=== PATIENT | female | born 1970 | race Caucasian/White ===

== ENCOUNTER 2019-11-25 14:46 | Emergency (ER) | payer OTHER, SELFPAY ==
--- NOTE | ~2019-11-25 | CT_ITS ---
EXAMINATION: CTA chest PE protocol DATE: 11/25/2019 16:17 INDICATION: Shortness of breath, COVID 19 diagnosed on 11/12/2019 TECHNIQUE: Computed tomography angiography (CTA) of the chest was performed with 100 mL Omnipaque-350 intravenous contrast timed to evaluate the pulmonary arteries. Coronal maximum intensity projection 3D-reconstructions were created by the technologist. The dose-length product (DLP) was 379.00 mGy-cm. Automated exposure control and iterative reconstruction technique were employed. COMPARISON: None. FINDINGS: The pulmonary arteries are well-opacified. No pulmonary embolism is identified. There are patchy groundglass opacities throughout the lungs. Trace pleural effusions are present. There is no p neumothorax. The heart size is normal. There is mild bilateral hilar and mediastinal lymphadenopathy. IMPRESSION: 1. No pulmonary embolism. 2. Patchy groundglass opacities throughout all lung zones, compatible with patient's history of COVID 19 pneumonia. Reviewed, dictated and finalized at location A. IMPRESSION: 1. No pulmonary embolism. 2. Patchy groundglass opacities throughout all lung zones, compatible with courtney ent's history of COVID 19 pneumonia.
[2019-11-25 14:49] VITALS: BP 111/77; PULSE 71; RESP 20; TEMP 36.7; O2SAT 97
[2019-11-25 15:30] LABS: Basophils Percent Auto 0.3 % (0.2-1.2); Eosinophils Absolute Auto 0.1 K/mm3 (0-0.3); Eosinophils Percent Auto 0.9 % (0-4.4); Hematocrit 40.5 % (37.0-47.0); Hemoglobin 14.2 g/dL (12.0-15.0); Immature Granulocyte Absolute 0.06 K/mm3 (0.00-0.031); Immature Granulocyte Percent A 0.4 % (0-0.5); Lymphocytes Absolute Auto 2.11 K/mm3 (0.9-3.2); Lymphocytes Percent Auto 15.4 % (18.3-44.2); Mean Corpuscular HGB Conc 35.1 g/dl (32-36); Mean Corpuscular Hemoglobin 30.1 pg (26-34); Mean Platelet Volume 9.6 fl (7.4-10.4); Monocytes Absolute Auto 0.7 K/mm3 (0.1-0.6); Monocytes Percent Auto 5.1 % (2.6-8.5); Neutrophils Absolute Auto 10.7 K/mm3 (1.3-6.7); Neutrophils Percent Auto 77.9 % (45.5-73.1); Platelet Count Result 392 k/mm3 (150-375); Red Blood Count 4.71 M/mm3 (4.2-5.4); Red Cell Distribution Width 11.1 % (11.5-14.5); White Blood Count 13.7 K/mm3 (4.5-10.0)
--- NOTE | 2019-11-25 15:39 | ED.SOB ---
HPI - SOB/Dyspnea General Chief Complaint: Shortness of Breath/Dyspnea <Enrique Espitia PA-C - Last Filed: 11/25/19 21:48> Stated Complaint: SOB <NOEL Nicole Last Filed: 11/25/19 21:48> Time Seen by Provider: 11/25/19 14:54 <NOEL Nicole Last Filed: 11/25/19 21:48> Source: patient <NOEL Nicole Last Filed: 11/25/19 21:48> Mode of arrival: ambulatory <NOEL Nicole Last Filed: 11/25/19 21:48> Limitations: no limitations <NOEL Nicole Last Filed: 11/25/19 21:48> History of Present Illness HPI Narrative: Patient presents with chief complaint of shortness of breath and feelings of chest tightness that has been occurring intermittently since her diagnosis of COVID on 11-12-19. Patient states that she officially tested positive on 11-13-19. Patient states that the health department clear her for return to work on Friday however she was still having fevers so her first day back to work was today. Patient states that she initially began feeling short of breath while walking into the building but lasted approximately 3 hours so she went back to the urgent care where she tested positive and was sent to the emergency department via EMS. Patient states she has been fever free for 24 hours. Patient denies nausea, vomiting, diarrhea. Patient reports she has a history of bipolar disorder, anxiety and IBS <NOEL Nicole Last Filed: 11/25/19 21:48> Related Data Home Medications: Home Medications Medication Instructions Recorded Confirmed alprazolam 1 mg PO TID 11/25/19 amoxicillin-pot clavulanate 1 tablet PO TID 11/25/19 cefdinir 300 mg PO BID 11/25/19 sertraline 200 mg PO DAILY 11/25/19 <NOEL Nicole Last Filed: 11/25/19 21:48> Allergies/Adverse Reactions: Allergies Allergy/AdvReac Type Severity Reaction Status Date / Time codeine Allergy Intermediate HYPERACTIVE Unverified 06/01/08 12:27 <Enrique Espitia PA-C - Last Filed: 11/25/19 21:48> Review of Systems Review of Systems: Narrative: CONSTITUTIONAL: Denies fever, chills, or sweats. EYES: Denies visual changes, redness, or discharge. ENT: Denies rhinorrhea, congestion, sore throat, or otalgia. CARDIOVASCULAR: Denies chest pain, palpitations, or edema. RESPIRATORY: Reports dyspnea denies cough GASTROINTESTINAL: Denies abdominal pain, nausea, vomiting, or diarrhea. GENITOURINARY: Denies dysuria or hematuria. SKIN: Denies rash or itching. MUSCULOSKELETAL: Denies back pain, myalgia, or joint pain NEUROLOGIC: Denies headache, numbness, dizziness, or weakness. PSYCHIATRIC: Denies anxiety or depression. <Enrique Espitia PA-C - Last Filed: 11/25/19 21:48> Exam Narrative: Exam Narrative: GENERAL: Well-appearing, well-nourished. HEAD: Normocephalic, atraumatic. EYES: PERRLA and EOMI. ENT: Nares clear, no rhinorrhea or epistaxis. Mucous membranes moist. Oropharynx without tonsillar hypertrophy exudate or other lesions. Bilateral TMs pearly decker nonbulging NECK: Supple. No adenopathy or masses. No vertebral tenderness or loss of ROM. CHEST: Clear to auscultation. No respiratory distress. No wheezes rales or rhonchi. Patient is not tachypneic. HEART: Regular rate and rhythm. Normal peripheral pulses. EXTREMITIES: No acute changes in ROM. No edema. No pain with palpation of lower legs. SKIN: Warm, dry, no rash. NEURO: No focal deficits. Alert and oriented x3. PSYCH: Normal mood and affect. <Enrique Espitia PA-C - Last Filed: 11/25/19 21:48> Course Vital Signs Vital signs: Vital Signs Temperature 98.0 F 11/25/19 14:49 Pulse Rate 71 11/25/19 14:49 Respiratory Rate 20 11/25/19 14:49 Blood Pressure 111/77 11/25/19 14:49 Pulse Oximetry 97 11/25/19 14:49 Temperature 98.0 F 11/25/19 14:49 Pulse Rate 78 11/25/19 17:12 Respiratory Rate 18 11/25/19 17:12 Blood Pressure 132/68 11/25/19 17:12 Pulse Oximetry 99
[2019-11-25 15:42] LABS: Prothrombin Time 13.1 Seconds (11.1-14.7)
--- NOTE | 2019-11-25 15:42 | ECG_ITS ---
Measurements Intervals [place] Rate: 76 P: 22 MO: 156 QRS: -19 QRSD: 92 T: 12 QT: 380 QTc: 429 Interpretive Statements SINUS RHYTHM DELAYED PRECORDIAL R/S TRANSITION BORDERLINE T WAVE ABNORMALITY- ANTERIOR LEADS BASELINE ARTIFACT- I, II, AVR BORDERLINE ECG Electronically Signed On 11-26-2019 14:21:55 CDT by Surya Catherine D.O.
[2019-11-25 15:43] LABS: Partial Thromboplastin Time 25.2 SECONDS (22.3-36.8)
[2019-11-25 15:44] LABS: Alanine Aminotransferase 36 U/L (4-35); Albumin Level 3.9 g/dL (3.5-5.1); Alkaline Phosphatase 84 U/L (38-126); Anion Gap 13 mmol/L (8-16); Aspartate Amino Transferase 31 U/L (14-36); Bilirubin,Total 0.2 mg/dL (0.2-1.3); Blood Urea Nitrogen 14 mg/dL (7-17); Calcium 8.9 mg/dL (8.4-10.2); Carbon Dioxide 18 mmol/L (22-30); Chloride 100 mmol/L (98-107); Estimated CRCL calculation 122 ml/min; Estimated Glomerular Filt Rate > 60; Glucose 94 mg/dL (65-105); Potassium 4.4 mmol/L (3.4-5.0); Sodium 131 mmol/L (137-145)
[2019-11-25 15:45] LABS: D Dimer 0.97 ug/mL (<0.48)
[2019-11-25] MEDS: ALBUTEROL SULFATE (*SP) AEROSOL 1 PUFF 2 PUFF INHALATION (16:10)
[2019-11-25 16:59] LABS: Add Urine Microscopic? YES; Appearance Urine Clear (Clear); Bilirubin Urine Negative (Negative); Blood Urine Negative (Negative); Color Urine Straw (Yellow); Glucose Urine UA Negative (Negative); Ketones Urine Negative (Negative); Leukocyte Esterase Ur Negative LEU/UL (Negative); Nitrate Urine Negative (Negative); Protein Urine Negative (Negative); RBC Urine 0-2 /hpf (0-2); Urobilinogen Urine Negative mg/dL (<2.0); WBC Urine 0-3 /hpf
[2019-11-25 17:01] LABS: Specific Grav Ur 1.039 (1.001-1.035)
[2019-11-25 17:12] VITALS: BP 132/68; PULSE 78; RESP 18; O2SAT 99
== END 2019-11-25 17:15 | disposition home or self-care (01) ==
PROVIDERS: Physician Assistant; Emergency Provider General Practice
DX: U07.1 COVID-19 (principal); J12.89 Other viral pneumonia; R94.31 Abnormal electrocardiogram [ECG] [EKG]
CPT/HCPCS: 36415; 71275; 80053; 81001; 85025; 85380; 85610; 85730; 93005; 99284; A9270; Q9967

== ENCOUNTER 2022-08-26 01:06 | Day surgery (SDC) | payer OTHER, SELFPAY ==
--- NOTE | 2022-08-21 13:32 | PC.NURSE ---
Report to the Outpatient Waiting Room, entrance under the green pavilion located off [facility], at time 0615_ on date _08/26/22 . Planned Procedure Time: _0815__. Time changes happen often and if your time is changed the preop area will call you the afternoon before. - You and your visitor will be asked to self-screen and do not enter if you have any COVID symptoms. - A mask is optional within the hospital at this time. Patients may have clear liquids (water, carbonated beverages, clear teas, apple juice) until 3 hours prior to surgery with a maximum of 20 ounces. - No food from midnight until time of surgery Take only the following medications with a SIP of water the morning of surgery: __ALPRAZOLAM, SERTRALINE, SAPHRIS, BREO INHALER AND ALBUTEROL INHALER NEEDED DO NOT STOP ANY OF YOUR OTHER PRESCRIPTION MEDICATIONS PRIOR TO SURGERY ?EXCEPT THE FOLLOWING Medications to discontinue per physician N/A Date to take last dose N/A Please no make-up, nail faroese, hairspray, perfume, deodorant, or body powder the day of surgery. No jewelry (including any body piercings) or valuables the day of surgery, leave them at home. Please take a shower or bath the night before, or the morning of, surgery with an antibacterial soap. Wear comfortable, loose fitting clothing. - Jewelry must be removed prior to entering the operating room. Rings and piercings that are not removed may be cut off. - The hospital will not accept responsibility for valuables. - Please leave all valuables, including medications, at home the day of surgery. If you are going home after surgery, a licensed spike driver must drive you home. - NO public transportation without another adult if you receive anesthesia. - We recommend that an adult stay with you for 24 hours following discharge. - We also recommend that you do not drive, make important decision, drink alcoholic beverages, or take any drugs that were not prescribed by your health care provider for at least 24 hours after your discharge time. Follow any additional instructions given to you from your surgeon. If you or anyone in your household have experienced Covid symptoms in the past week, please notify your surgeon or the nurse liaison at the phone number below for possible testing. Telephone instructions given to __TRICIA and asked if any additional questions and then verbalized understanding. Patient advised to call surgeon office or pre surgery nurse liaison [phone] if any additional questions.
[2022-08-26 08:20] VITALS: BP 113/72; PULSE 77; RESP 18; TEMP 35.9; O2SAT 100
[2022-08-26] MEDS: ACETAMINOPHEN 500 MG TABLET 1000 MG PO (08:41)
[2022-08-26] MEDS: LACTATED RINGERS 1,000 ML 30 ML IV CONT (08:42)
--- NOTE | 2022-08-26 09:33 | P.PNAN_ITS ---
Anes - Initial Pre Proc Eval Procedure: Operation Date: 08/26/22 10:15 Proposed Procedures p Hysteroscopy Dilation and Curettage - Tamika Ibanez MD Date/Time: 08/26/22 09:33 Surgeon: Tamika Ibanez MD Pre Op Diagnosis: post menopausal bleeding Patient Data Age: 52 Gender: F Height: 1.73 m Weight: 118.2 kg Last Vital Signs Temp 35.9 C L 08/26/22 08:20 Pulse 77 08/26/22 08:20 Resp 18 08/26/22 08:20 BP 113/72 08/26/22 08:20 Pulse Ox 100 08/26/22 08:20 O2 Del Method Room Air 08/26/22 08:20 Allergies Allergy/AdvReac Type Severity Reaction Status Date / Time codeine AdvReac Intermediate N/V Unverified 08/26/22 08:28 Home Medications Medication Instructions Recorded Confirmed Type alprazolam 1 mg tablet 1 mg PO TID 11/25/19 08/26/22 History sertraline 100 mg tablet 200 mg PO DAILY 11/25/19 08/26/22 History albuterol sulfate 90 mcg/actuation 2 inh inhalation PRN PRN SOB 08/21/22 08/26/22 History breath activated powder inhaler asenapine maleate 5 mg sublingual 5 mg sublingual BID 08/21/22 08/26/22 History tablet (Saphris) azathioprine 50 mg tablet 150 mg PO HS 08/21/22 08/26/22 History fluticasone furoate 100 1 ea inhalation DAILY 08/21/22 08/26/22 History mcg-vilanterol 25 mcg/dose inhalation powder (Breo Ellipta) pantoprazole 40 mg tablet,delayed 40 mg PO HS 08/21/22 08/26/22 History release Patient hx anesthesia problems: none Family hx anesthesia problems: none Results Review: All pre-operative results and documents have been reviewed as part of the pre- operative evaluation. [facility] Past Medical History Medical History (Updated 08/26/22 @ 09:33 by Yoel Carlson MD) Asthma Obesity Social History Social History Smoking status: Never smoker Alcohol intake: never Substance use: never Substance use type: does not use Living arrangements: with family Spiritual care concerns: No Anes - Eval Final PreProcedure Day of Procedure 08/26/22 09:33 Patient weight: obese Heart: regular rate and rhythm Lungs: clear to auscultation Airway: Mallampati scale class II Neurological: alert and oriented Last oral intake: >/= 8 hours ASA classification: III Emergent: no Anesthetic plan: proceed Anesthesia type and monitoring: general GIVS and standard monitoring Results Review: All pre-operative results and documents have been reviewed as part of the pre- operative evaluation. Informed Consent: The patient's anesthetic plan and its attendant risks and benefits were discussed with the patient/family/POA. Questions were solicited and answers provided to the satisfaction of the patient/family/POA.
--- NOTE | 2022-08-26 10:26 | WPDHPUPDATE1 ---
History and Physical Update Update Date/Time: 08/26/22 10:26 History and Physical has been reviewed, including an updated exam of the patient. There are NO changes in the patient's condition. Risks, benefits, and alternatives have been discussed and questions answered. Patient agrees to proceed with procedure.
--- NOTE | 2022-08-26 10:26 | PM.HPGS ---
History of Present Illness History of Present Illness Consent: Risks, benefits, and alternatives have been discussed and questions answered. Patient agrees to proceed with procedure. Chief complaint: post menopausal bleeding Narrative: Rody Velazquez is a 52 year old female with postmenopausal bleeding. She underwent ultrasound which resulted in a thickened endometrium of 0.7cm. It was recommended to proceed with D&C hysteroscopy for further evaluation. Risks infection, bleeding, perforation and possible pathology are reviewed. Patient voices understanding and agrees to proceed Review of Systems Review of Systems: not repeated day of surgery; patient states no changes in status [facility] Past Medical History Medical History (Updated 08/26/22 @ 10:32 by Tamika Ibanez MD) Anxiety Asthma Bipolar 1 disorder Borderline diabetic Elevated cholesterol IBS (irritable bowel syndrome) Migraines Narcolepsy (normal spontaneous vaginal delivery) x2 Obesity Psoriasis Rheumatoid arthritis Surgical History Surgical History (Updated 08/26/22 @ 10:30 by Tamika Ibanez MD) History of hand surgery removal of cyst from the left hand History of hysteroscopy with placement of Essure sterilization device Social History Social History Smoking status: Never smoker Alcohol intake: never Substance use: never Substance use type: does not use Living arrangements: with family Spiritual care concerns: No Meds Home Medications and Allergies Home Medications Medication Instructions Recorded Confirmed Type alprazolam 1 mg tablet 1 mg PO TID 11/25/19 08/26/22 History sertraline 100 mg tablet 200 mg PO DAILY 11/25/19 08/26/22 History albuterol sulfate 90 mcg/actuation 2 inh inhalation PRN PRN SOB 08/21/22 08/26/22 History breath activated powder inhaler asenapine maleate 5 mg sublingual 5 mg sublingual BID 08/21/22 08/26/22 History tablet (Saphris) azathioprine 50 mg tablet 150 mg PO HS 08/21/22 08/26/22 History fluticasone furoate 100 1 ea inhalation DAILY 08/21/22 08/26/22 History mcg-vilanterol 25 mcg/dose inhalation powder (Breo Ellipta) pantoprazole 40 mg tablet,delayed 40 mg PO HS 08/21/22 08/26/22 History release Allergies Allergy/AdvReac Type Severity Reaction Status Date / Time codeine AdvReac Intermediate N/V Unverified 08/26/22 08:28 Vital Signs Vital Signs - 24 hr 08/26/22 08:20 Temperature 96.7 F L Pulse Rate 77 Respiratory Rate 18 Blood Pressure 113/72 Pulse Oximetry 100 Oxygen Delivery Room Air Exam Const: General: healthy appearing, alert and obese ( BMI 40.8) Orientation/consciousness: patient oriented x3 Resp: Effort & Inspection: normal respiratory effort GI: GI Palp: Yes Soft to palpation, No Tenderness to palpation present (GI) and No Palpable mass present : External Female Exam: normal external appearance Speculum Exam - Vagina: normal appearance of the vagina and normal vaginal discharge Speculum Exam - Cervix: normal appearance of the cervix Bimanual exam- vagina & uterus: uterine size normal and consistency normal Bimanual Exam- Adnexa, other: normal adnexae and No adnexal tenderness Neuro: General: patient oriented x3 Assessment and Plan Assessment and plan (1) Post-menopausal bleeding: Code(s): N95.0 - Postmenopausal bleeding Status: Acute Assessment and Plan: plan to proceed with D&C hysteroscopy
[2022-08-26 11:05] VITALS: BP 118/56; PULSE 64; RESP 16; O2SAT 93
--- NOTE | 2022-08-26 11:14 | P.OP_ITS ---
Procedure Note - Detailed Date of Procedure 08/26/22 Pre-op Diagnosis post menopausal bleeding Post-op Diagnosis Same Procedure Performed D&C hysteroscopy Surgeon Tamika Ibanez MD Anesthesia MAC Findings Atrophic endometrium sounded to 8cm Description of Procedure The patient is taken to the operating room and placed under anesthesia in the dorsal lithotomy position. She was prepped and draped in usual sterile fashion. [place] speculum was placed in the vagina and the cervix grasped on the anterior lip with a tenaculum. The uterus is sounded to 8cm and the diagnostic hysteroscope placed. The endometrium appears atrophic. The hysteroscope was removed and the sharp curette used to curette the endometrium until a good uterine cry was noted in all areas. Minimal material was obtained consistent with the visual appearance. All instruments are removed. Sponge, needle, and instrument counts are correct per the OR staff. Patient is awakened from anesthesia and taken to recovery in stable condition. Estimated Blood Loss 5 Drains No Packing No Pathology Yes ( endometrial curettings) Complications No immediate complications Condition Stable Disposition PACU
[2022-08-26 11:35] VITALS: BP 115/67; PULSE 59; RESP 16; O2SAT 98
[2022-08-26 12:05] VITALS: BP 137/86; PULSE 68; RESP 16; O2SAT 98
[2022-08-26 12:25] VITALS: BP 120/69; PULSE 60; RESP 16; O2SAT 98
== END 2022-08-26 12:40 | disposition home or self-care (01) ==
PROVIDERS: PCP Internal Medicine; Visit Provider Obstetrics & Gynecology Gynecology
PROC: 0U5B8ZZ Destruction of Endometrium, Via Natural or Artificial Opening Endoscopic (ICD-10-PCS; CPT 58563; principal; 2022-08-26 10:15)
DX: N95.0 Postmenopausal bleeding (principal); J45.909 Unspecified asthma, uncomplicated; E66.9 Obesity, unspecified; Z68.39 Body mass index [BMI] 39.0-39.9, adult; Z79.51 Long term (current) use of inhaled steroids; F31.9 Bipolar disorder, unspecified
CPT/HCPCS: 58558; 88305; A9270; J2250; J2704; J3010; J7120

== ENCOUNTER → 2022-12-11 12:12 | Outpatient (CLI) | payer OTHER, SELFPAY ==
--- NOTE | ~2022-12-11 | MM_ITS ---
EXAMINATION: MM screening kayce BI w chacho HISTORY: Screening mammogram TECHNIQUE: Craniocaudal and mediolateral oblique 3-D tomosynthesis images were obtained and synthetic 2-D images were generated. CAD analysis was submitted and interpreted. COMPARISON: No prior mammogram is available for comparison at this institution. BREAST PARENCHYMAL COMPOSITION: The breasts are heterogeneously dense, which may obscure small masses . FINDINGS: There is no evidence of suspicious mass, calcification, or architectural distortion to sugg est malignancy in either breast. There has been no suspicious interval change. IMPRESSION: 1. No mammographic evidence of malignancy. 2. Recommend routine screening mammography in one year. BI-RADS Category 1: Negative Reviewed, dictated and finalized at location A.
--- NOTE | ~2022-12-11 | DEXA_ITS ---
Bone Density Report Name: KATHRYN MORALES Age: 52 Sex: Female Ethnicity: White Date of : 1970 Indication: postmenopausal; screening for osteoporosis; height loss; history of glucocorticoids; prior fracture; asthma or emphysema; rheumatoid arthritis; Referring Provider: CEFERINO ROD Study: Bone densitometry was performed. Exam Date: December 11, 2022 Accession number: [id number] Bone Density: Region BMD T-score Z-score Classification AP Spine (L1-L4) 1.080 0.3 1.1 Normal Femoral Neck (Left) 0.848 0.0 0.8 Normal Total Hip (Left) 1.018 0.6 1.2 Normal Femoral Neck (Right) 0.847 0.0 0.8 Normal Total Hip (Right) 0.939 0.0 0.5 Normal Total Hip Mean 0.979 0.3 0.9 Normal World Health Organization criteria for BMD impression classify patients as: Normal (T-score at or above -1.0), Osteopenia (T-score between -1.0 and -2.5), or Osteoporosis (T-score at or below -2.5). 10-year Fracture Risk: FRAX not reported because: All T-scores for Spine Total, Hip Total, Femoral Neck at or above -1.0 Prior hip or vertebral fracture Clinical Information Provided by Patient: Have had a previous hip or vertebral fracture Has had a low trauma fracture Has taken Glucocorticoids Has rheumatoid arthritis Has the following medical conditions: Asthma or Emphysema, IBS, no meds Patient maximum height was 69 No regular weight bearing exercise Drinks caffeinated beverages Onset of menses at age 14 Number of children 2 Impression: The patient has normal bone mass. The patient has risk factors, including: previous fracture, history of glucocorticoid therapy. Discussion: INCREASED RISK OF FRACTURE DUE TO HISTORY OF FRACTURE. The patient's previous fracture puts the patient at high risk of a future fracture. In untreated patients, the risk of osteoporotic fracture increases approximately two-fold for each 1.0 SD decrease in T-score. Low bone density is not the only risk factor for fracture; also consider factors such as patient's age, frailty or poor health, risk of falling, risk of injury, previous osteoporotic fracture, family history of osteoporosis, cigarette smoking, low body weight, etc. Not everyone with a low trauma fracture has osteoporosis; osteomalacia and other metabolic bone disorders should also be considered. Patients who have osteoporosis should be evaluated for specific diseases and conditions (secondary causes) that may cause or contribute to bone loss and fracture risk. National Osteoporosis Foundation (NOF) recommends pharmacologic intervention for patients with a prior hip or vertebral fracture regardless of BMD T-score. The patient should follow a healthful lifestyle (good nutrition with adequate calcium and vitamin D, and appropriate weight-bearing exercise). Follow-Up: Consider a repeat BMD
== END ==
PROVIDERS: PCP Obstetrics & Gynecology Gynecology; Visit Provider Obstetrics & Gynecology Gynecology
DX: Z12.31 Encounter for screening mammogram for malignant neoplasm of breast (principal); Z13.820 Encounter for screening for osteoporosis; Z78.0 Asymptomatic menopausal state
CPT/HCPCS: 77063; 77067; 77080

== ENCOUNTER 2023-02-22 22:42 | Emergency (ER) | payer OTHER, SELFPAY ==
--- NOTE | ~2023-02-22 | CT_ITS ---
EXAMINATION: CTA chest PE protocol DATE: 02/23/2023 00:02 INDICATION: Pleuritic chest pain TECHNIQUE: Computed tomography angiography (CTA) of the chest was performed with 100 mL Omnipaque-350 intravenous contrast timed to evaluate the pulmonary arteries. Coronal maximum intensity projection 3D-reconstructions were created by the technologist. The dose-length product (DLP) was 758.15 mGy-cm. Automated exposure control and iterative reconstruction technique were employed. COMPARISON: 11/25/2019 FINDINGS: The pulmonary arteries are moderately well-opacified. No pulmonary embolism is identified. There is mild dependent atelectasis of the lungs. No pleural effusion or pneumothorax. There is enlar gement of the main and central pulmonary arteries, consistent with pulmonary hypertension. There is l eft ventricular enlargement of the heart. There are no pathologically enlarged thoracic lymph nodes. There is mild thoracic spondylosis. IMPRESSION: 1. No pulmonary embolus identified. 2. Mild dependent atelectasis. Reviewed, dictated and finalized at location F. [employer]
--- NOTE | ~2023-02-22 | XR_ITS ---
XR chest 2V DATE: 02/22/2023 23:14 INDICATION: Pleuritic chest pain. Recent Covid infection. TECHNIQUE: AP and lateral views COMPARISON: 11/25/2019 CT pulmonary scan FINDINGS: Cardiomegaly. No hilar or mediastinal enlargement. No pulmonary consolidation, pleural effusion, pulmonary vascular congestion or pneumothorax is eviden t. Included skeletal structures are unremarkable. IMPRESSION: Cardiomegaly Reviewed, dictated and finalized at location A. [employer] IMPRESSION: Cardiomegaly
[2023-02-22 22:43] VITALS: BP 133/76; PULSE 62; RESP 26; TEMP 36.4; O2SAT 99
--- NOTE | 2023-02-22 22:45 | ECG_ITS ---
Measurements Intervals [place] Rate: 64 P: 49 FL: 191 QRS: -21 QRSD: 100 T: 8 QT: 417 QTc: 431 Interpretive Statements SINUS RHYTHM DELAYED PRECORDIAL R/S TRANSITION POSSIBLE LEFT VENTRICULAR HYPERTROPHY MINIMAL Q WAVES- HIGH LATERAL LEADS BORDERLINE T WAVE ABNORMALITY- ANT/INF LEADS BASELINE ARTIFACT- I, II, AVR, AVL BORDERLINE ECG COMPARED TO ECG 11/25/2019 14:52:05 NO SIGNIFICANT CHANGES Electronically Signed On 02-23-2023 9:22:37 COFFEE SUPERVISOR by Surya Catherine D.O.
[2023-02-22 22:59] VITALS: O2SAT 98
[2023-02-22 23:00] VITALS: O2SAT 98
[2023-02-22 23:06] LABS: Basophils Percent Auto 0.3 % (0.2-1.2); Eosinophils Absolute Auto 0.2 K/mm3 (0-0.3); Eosinophils Percent Auto 1.5 % (0-4.4); Hematocrit 34.4 % (37.0-47.0); Immature Granulocyte Absolute 0.04 K/mm3 (0.00-0.031); Immature Granulocyte Percent A 0.4 % (0-0.5); Lymphocytes Absolute Auto 2.77 K/mm3 (0.9-3.2); Lymphocytes Percent Auto 25.7 % (18.3-44.2); Mean Corpuscular Hemoglobin 29.8 pg (26-34); Mean Corpuscular Volume 93.2 fl (80-100); Mean Platelet Volume 8.7 fl (7.4-10.4); Monocytes Absolute Auto 0.6 K/mm3 (0.1-0.6); Monocytes Percent Auto 5.8 % (2.6-8.5); Neutrophils Absolute Auto 7.2 K/mm3 (1.3-6.7); Neutrophils Percent Auto 66.3 % (45.5-73.1); Platelet Count Result 406 k/mm3 (150-375); Red Blood Count 3.69 M/mm3 (4.2-5.4); White Blood Count 10.8 K/mm3 (4.5-10.0)
[2023-02-22 23:43] VITALS: BP 146/72; PULSE 60; RESP 19; O2SAT 100
[2023-02-22 23:44] LABS: Alanine Aminotransferase 38 U/L (6-35); Albumin Level 4.7 g/dL (3.5-5.1); Alkaline Phosphatase 83 U/L (38-126); Anion Gap 8 mmol/L (8-16); Aspartate Amino Transferase 39 U/L (14-36); Bilirubin,Total 0.5 mg/dL (0.2-1.3); Blood Urea Nitrogen 17 mg/dL (7-17); Calcium 9.7 mg/dL (8.4-10.2); Carbon Dioxide 28 mmol/L (22-30); Chloride 101 mmol/L (98-107); Estimated CRCL calculation 131 ml/min; Estimated Glomerular Filt Rate > 60; Glucose 99 mg/dL (65-110); Potassium 3.8 mmol/L (3.4-5.0); Sodium 137 mmol/L (137-145)
[2023-02-22 23:46] VITALS: BP 132/89; PULSE 63; PULSE 68; RESP 16; RESP 18; O2SAT 100
[2023-02-22] MEDS: ALBUTEROL SULFATE NEB 2.5 MG/3 ML INH INHALATION (23:46)
[2023-02-22] MEDS: IPRATROPIUM BR 0.02% INH SOLN 0.5 MG/2.5 ML VIAL INHALATION (23:46)
[2023-02-22 23:53] VITALS: PULSE 72; RESP 18
[2023-02-23 00:01] LABS: Lactic Acid Reflex 0.9 mmol/L (0.7-2.0)
[2023-02-23 00:03] LABS: Prothrombin Time 13.6 Seconds (11.1-14.7)
[2023-02-23 00:04] LABS: Partial Thromboplastin Time 26.2 SECONDS (22.3-36.8)
[2023-02-23 00:11] LABS: NT Pro B Type Natriuretic Pept < 20 pg/mL (19.9-100); Troponin I < 0.012 ng/mL (0.000-0.034)
[2023-02-23 00:15] VITALS: PULSE 68; RESP 14; O2SAT 95
[2023-02-23] MEDS: MORPHINE SULFATE (*CRX) 4 MG/ML INJ IV PUSH (00:22)
[2023-02-23] MEDS: methylPREDNISolone SOD SUCC 125 MG VIAL IV PUSH (00:22)
[2023-02-23 00:26] LABS: Influenza A QL RT-PCR Negative (Negative); Influenza B QL RT-PCR Negative (Negative); RSV RNA, RT-PCR Negative (Negative); SARS-CoV-2 RNA PCR Negative (Negative)
--- NOTE | 2023-02-23 01:34 | ED.GENADULT ---
HPI - General Adult General Chief complaint: Shortness of Breath/Dyspnea Stated complaint: breathing problems Time Seen by Provider: 02/22/23 22:54 History of Present Illness HPI narrative: Patient is a 52-year-old female who presents emergency department chief complaint of chest discomfort and shortness of breath. Patient reports that she recently had COVID-19 reports that she has history of asthma and reports that she has been having some tightness in her chest and has also had some wheezing. The patient reports she has her inhaler patient reports she is currently on antibiotics for UTI taking Augmentin and Flagyl Related Data Home Medications Medication Instructions Recorded Confirmed alprazolam 1 mg tablet 1 mg PO TID 11/25/19 08/26/22 sertraline 100 mg tablet 200 mg PO DAILY 11/25/19 08/26/22 albuterol sulfate 90 mcg/actuation 2 inh inhalation PRN PRN SOB 08/21/22 08/26/22 breath activated powder inhaler asenapine maleate 5 mg sublingual 5 mg sublingual BID 08/21/22 08/26/22 tablet (Saphris) azathioprine 50 mg tablet 150 mg PO HS 08/21/22 08/26/22 fluticasone furoate 100 1 ea inhalation DAILY 08/21/22 08/26/22 mcg-vilanterol 25 mcg/dose inhalation powder (Breo Ellipta) pantoprazole 40 mg tablet,delayed 40 mg PO HS 08/21/22 08/26/22 release Allergies Allergy/AdvReac Type Severity Reaction Status Date / Time codeine AdvReac Intermediate N/V Verified 02/22/23 23:25 Review of Systems Review of Systems: A 10 system review of systems was completed on the patient and is negative except for what is stated in the HPI. Nursing and ancillary documentation was reviewed. [facility] Past Medical History Medical History Anxiety Asthma Bipolar 1 disorder Borderline diabetic Elevated cholesterol IBS (irritable bowel syndrome) Migraines Narcolepsy (normal spontaneous vaginal delivery) x2 Obesity Psoriasis Rheumatoid arthritis Surgical History Surgical History History of hand surgery removal of cyst from the left hand History of hysteroscopy with placement of Essure sterilization device Social History Social History Smoking status: Never smoker Alcohol intake: never Substance use: never Substance use type: does not use Living arrangements: with family Spiritual care concerns: No Exam Narrative: GENERAL: Well-appearing, well-nourished, and in no acute distress. HEAD: Normocephalic, atraumatic. EYES: PERRLA and EOMI. ENT: Nares clear, no rhinorrhea or epistaxis. Mucous membranes moist. NECK: Supple. CHEST: Clear to auscultation. No respiratory distress. HEART: Regular rate and rhythm. No murmur heard. Normal peripheral pulses. ABDOMEN: Soft, nontender, nondistended, normal active bowel sounds. EXTREMITIES: Normal range of motion. No edema. SKIN: Warm, dry, no rash. NEURO: No focal deficits. Alert and oriented x3. PSYCH: Normal mood and affect. Course Vital Signs Vital signs: Vital Signs Temperature 36.4 C L 02/22/23 22:43 Pulse Rate 62 02/22/23 22:43 Respiratory Rate 26 H 02/22/23 22:43 Blood Pressure 133/76 02/22/23 22:43 Pulse Oximetry 99 02/22/23 22:43 Oxygen Delivery Room Air 02/22/23 22:43 Temperature 36.4 C L 02/22/23 22:43 Pulse Rate 68 02/23/23 00:15 Respiratory Rate 14 02/23/23 00:15 Blood Pressure 132/89 02/22/23 23:46 Pulse Oximetry 95 02/23/23 00:15 Oxygen Delivery Room Air 02/22/23 23:00 Medical Decision Making [facility] Narrative Medical decision making narrative: Differential diagnosis includes pulmonary embolism, ACS, pneumothorax, pneumonia EKG showed no acute ischemic changes laboratory studies showed a troponin of less than 0.012 BNP was negative liver enzymes were slightly elevated but normal bilirubin white
[2023-02-23 02:07] VITALS: BP 116/69; PULSE 76; RESP 15; O2SAT 99
== END 2023-02-23 02:11 | disposition home or self-care (01) ==
PROVIDERS: Emergency Provider Emergency Medicine; PCP Obstetrics & Gynecology Gynecology
DX: J20.9 Acute bronchitis, unspecified (principal); J45.901 Unspecified asthma with (acute) exacerbation; Z20.822 Contact with and (suspected) exposure to COVID-19; E78.00 Pure hypercholesterolemia, unspecified; E66.9 Obesity, unspecified; Z68.41 Body mass index [BMI] 40.0-44.9, adult; M06.9 Rheumatoid arthritis, unspecified; L40.9 Psoriasis, unspecified; K58.9 Irritable bowel syndrome, unspecified; R73.03 Prediabetes; F41.9 Anxiety disorder, unspecified; F31.9 Bipolar disorder, unspecified; Z86.16 Personal history of COVID-19
CPT/HCPCS: 36415; 71046; 71275; 80053; 83605; 83880; 84484; 85025; 85610; 85730; 87637; 93005; 94640; 96374; 96375; 99284; J2270; J2930; Q9967